=== PATIENT | male | born 1960 | race Caucasian/White ===

== ENCOUNTER → 2016-12-12 | Outpatient (CLI) | payer MEDICARE, OTHER ==
[~2016-12-12] MED LIST: ASPIRIN325 MG PO; FLOMAX 0.4 MG0.4 MG PO; LIPITOR TAB 1010 MG PO; LISINOPRIL20 MG PO; NITROSTAT0.4 MG SL; PLAVIX 75 MG TA75 MG PO; PROAIR HFA8.5 GM INH; TESSALON PERLE100 MG PO
== END ==
LOC: OPSV 09:00
DX: C34.12 Malignant neoplasm of upper lobe, left bronchus or lung (principal)
CPT/HCPCS: G0463

== ENCOUNTER 2016-12-21 19:45 | Emergency (ER) | payer MEDICARE, OTHER | END 2016-12-21 22:30 | disposition home or self-care (01) | LOC: ER1 19:45 | DX: R22.2 Localized swelling, mass and lump, trunk (principal); I10 Essential (primary) hypertension; I25.810 Atherosclerosis of coronary artery bypass graft(s) without angina pectoris; F17.210 Nicotine dependence, cigarettes, uncomplicated; Z95.1 Presence of aortocoronary bypass graft; Z85.118 Personal history of other malignant neoplasm of bronchus and lung | CPT/HCPCS: 71020; 99283 ==

== ENCOUNTER → 2016-12-26 | Outpatient (CLI) | payer MEDICARE, OTHER | LOC: OPSV 09:39 | DX: C34.12 Malignant neoplasm of upper lobe, left bronchus or lung (principal) ==

== ENCOUNTER 2020-09-08 20:17 | Observation (INO) | payer MEDICARE, OTHER ==
[~2020-09-08] VITALS: Ht 182.9 cm; Wt 65.0 kg
[~2020-09-08 20:17] MED LIST changes: +ASPIRIN CHEWABL81 MG PO; +ATORVASTATIN CA20 MG PO; +BACTRIM DS TAB1 EACH PO; +BREO ELLIPTA 11 EACH INH; +CEFUROXIME500 MG PO; +CIPROFLOXACIN500 M1 PO; +CLOPIDOGREL75 MG PO; +COLACE 100MG C100 MG PO; +DOXYCYCLINE MO100 MG PO; +IBUPROFEN800 MG PO; +IMDUR ER TAB 3030 MG PO; +KEFLEX CAP 500500 MG PO; +LIPITOR TAB 2020 MG PO; +LIPO-FLAVONOID1 EACH PO; +LISINOPRIL10 MG PO; +LOPRESSOR 25 MG25 MG PO; +MEDROL DOSEPAK 24 MG PO; +MEDROL4 MG PO; +MELOXICAM7.5 MG PO; +NITROGLYCERIN0.4 MG SL; +NORCO 5-325 TA1 EACH PO; +OMEPRAZOLE20 MG PO; +POVIDONE IODINE TOP; +PROVENTIL HFA6.7 GM INH; +PYRIDIUM200 MG PO; +SUMATRIPTAN SUC25 MG PO; +ZANTAC150 MG PO; +ZOFRAN4 MG PO
[2020-09-08 21:08] LABS: HEMOGLOBIN 14.6 gm/dl (14.0-17.5); RED BLOOD COUNT 4.15 M/UL (4.20-5.50); WHITE BLOOD COUNT 9.7 K/UL (4.5-11.0)
[2020-09-08 21:16] LABS: BUN/CREATININE RATIO 11 (0-10)
[2020-09-09] MEDS ORDERED: FLOMAX 0.4 MG0.4 MG PO (00:06)
[2020-09-09] MEDS ORDERED: PROAIR DIGIHAL90 MCG INH (00:08)
[2020-09-10 06:56] LABS: HEMOGLOBIN 13.8 gm/dl (14.0-17.5); RED BLOOD COUNT 4.06 M/UL (4.20-5.50); WHITE BLOOD COUNT 7.5 K/UL (4.5-11.0)
[2020-09-10 07:14] LABS: BUN/CREATININE RATIO 11 (0-10)
== END 2020-09-10 14:12 | disposition home or self-care (01) ==
LOC: ER1 20:17 → CDU 21:43 → MED SURG 4 21:43
PROVIDERS: Internal Medicine; Physician Assistant; ADMIT Internal Medicine
DX: R07.89 Other chest pain (principal); I25.10 Atherosclerotic heart disease of native coronary artery without angina pectoris; J44.9 Chronic obstructive pulmonary disease, unspecified; I10 Essential (primary) hypertension; E78.5 Hyperlipidemia, unspecified; F17.210 Nicotine dependence, cigarettes, uncomplicated; K22.70 Barrett's esophagus without dysplasia; Z95.5 Presence of coronary angioplasty implant and graft; Z85.118 Personal history of other malignant neoplasm of bronchus and lung; Z20.822 Contact with and (suspected) exposure to COVID-19; Z99.81 Dependence on supplemental oxygen; Z90.49 Acquired absence of other specified parts of digestive tract; Z98.890 Other specified postprocedural states; Z82.49 Family history of ischemic heart disease and other diseases of the circulatory system; Z87.442 Personal history of urinary calculi; Z88.5 Allergy status to narcotic agent; Z88.1 Allergy status to other antibiotic agents; Z88.8 Allergy status to other drugs, medicaments and biological substances; Z79.82 Long term (current) use of aspirin; Z79.02 Long term (current) use of antithrombotics/antiplatelets; Z79.899 Other long term (current) drug therapy
CPT/HCPCS: 36415; 71045; 80053; 82550; 82553; 83874; 83880; 84484; 85025; 85610; 85730; 93005; 94640; 94760; 96372; 99285; G0378; J1650; U0002

== ENCOUNTER 2020-09-21 10:28 | Emergency (ER) | payer MEDICARE, OTHER ==
[~2020-09-21 10:28] MED LIST changes: +PROAIR DIGIHAL90 MCG INH
[2020-09-21 13:32] LABS: BUN/CREATININE RATIO 10 (0-10)
[2020-09-21 14:02] LABS: HEMOGLOBIN 16.1 gm/dl (14.0-17.5); RED BLOOD COUNT 4.59 M/UL (4.20-5.50)
== END 2020-09-21 15:28 | disposition home or self-care (01) ==
LOC: ER1 10:28
PROVIDERS: Family Medicine
DX: G56.01 Carpal tunnel syndrome, right upper limb (principal); J44.9 Chronic obstructive pulmonary disease, unspecified; I11.9 Hypertensive heart disease without heart failure; F17.210 Nicotine dependence, cigarettes, uncomplicated; E78.00 Pure hypercholesterolemia, unspecified; Z88.5 Allergy status to narcotic agent
CPT/HCPCS: 70450; 71045; 80053; 82550; 82553; 83874; 84484; 85025; 99284; J2930